=== PATIENT | male | born 1995 | race Caucasian/White ===

== ENCOUNTER 2017-11-30 15:26 | Emergency (ER) | payer SELFPAY ==
[2017-11-30 15:34] VITALS: Ht 175.3 cm
[2017-11-30 17:55] VITALS: BP 128/89
[2017-11-30 17:55] LABS: BASOPHIL % 0.2 % (0-2); PLATELET COUNT 264 x10^3mcL (130-400); RED CELL DISTRIBUTION WIDTH 12.5 % (11.5-14.5)
[2017-11-30 18:19] LABS: CALCIUM 9.4 mg/dL (8.5-10.1); CARBON DIOXIDE 28.7 mmol/L (21-32); CHLORIDE SERUM 104 mmol/L (98-107); CREATININE SERUM 0.8 mg/dL (0.7-1.3); GFR1 > 60 mL/min; GLUCOSE SERUM 87 mg/dL (74-106); SODIUM SERUM 141 mmol/L (136-145)
[2017-11-30 18:23] LABS: ALBUMIN 4.4 g/dL (3.4-5.0); ALKALINE PHOSPHATASE 66 U/L (46-116); ALT/SGPT 29 U/L (16-63); AST/SGOT 21 U/L (15-37); BILIRUBIN TOTAL 0.59 mg/dL (0.20-1.00); CHOLESTEROL 183 mg/dL (<200); TOTAL PROTEIN, SERUM 7.6 g/dL (6.4-8.2)
[2017-11-30 18:49] LABS: AMPHETAMINE QUAL UR NONE DETECTED (See below)
== END 2017-11-30 20:18 | disposition home or self-care (01) ==
LOC: ED 15:26
PROVIDERS: Specialist
DX: R07.89 Other chest pain (principal); R42 Dizziness and giddiness; R53.1 Weakness; J45.909 Unspecified asthma, uncomplicated
CPT/HCPCS: 36415; G0480; Q0092